=== PATIENT | male | born 1960 | race Two or more races ===

== ENCOUNTER 2017-03-01 09:15 | Inpatient (IN) | payer OTHER ==
[2017-03-01 11:06] VITALS: BMI 22.6
--- NOTE | 2017-03-01 13:58 | HP ---
COWS - Scale Resting Pulse: 0= [place] 80 or Below Sweatin= Chills/Flushing Restless Observation: 3= Extraneous Movement Pupil Size: 2= Moderately Dilated Bone or Joint Aches: 4=Acute Joint/Muscle Pain Runny Nose/ Eye Tearin= Nasal Congestion GI Upset > 30mins: 1= Stomach Cramp Tremor Observation: 2= Slight Tremor Visible Yawning Observation: 2= >3x During Session Anxiety or Irritability: 1=Feels Anxious/Irritable Goose Flesh Skin: 0=Smooth Skin COWS Score: 17 CIWA Score - CIWA Score Nausea/Vomitin-No Nausea/No Vomiting Muscle Tremors: 3 Anxiety: 4-Mod. Anxious/Guarded Agitation: 3 Paroxysmal Sweats: 1-Minimal Palms Moist Orientation: 0-Oriented Tacttile Disturbances: 3-Moderate Itch/Numb/Burn Auditory Disturbances: 0-None Visual Disturbances: 0-None Headache: 0-None Present CIWA-Ar Total Score: 14 Admission ROS BHS - HPI Chief Complaint: DETOX FOR ALCOHOL AND HEROIN DEPENDENC Allergies/Adverse Reactions: Allergies Allergy/AdvReac Type Severity Reaction Status Date / Time No Known Allergies Allergy Verified 03/01/17 13:06 History of Present Illness: 57 Y/O H/M WITH A HX OF HEROIN AND ALCOHOL DEPENDENCE SEEKING DETOX [place] Exam Limitations: No Limitations - Ebola screening Have you traveled outside of the country in the last 21 days: No Have you had contact with anyone from an Ebola affected area: No Have you been sick,other than usual withdrawal symptoms: No Do you have a fever: No - Review of Systems Constitutional: Chills, Loss of Appetite, Night Sweats, Changes in sleep EENT: reports: Blurred Vision (WEARS GLASSES), Tearing, Nose Congestion Respiratory: reports: No Symptoms reported Cardiac: reports: Lightheadedness GI: reports: Constipated, Diarrhea, Nausea, Poor Appetite, Poor Fluid Intake, Vomiting : reports: No Symptoms Reported Musculoskeletal: reports: Muscle Pain Integumentary: reports: No Symptoms Reported Neuro: reports: Headache, Tremors, Unsteady Gait, Dizziness Endocrine: reports: No Symptoms Reported Hematology: reports: No Symptoms Reported Psychiatric: reports: Orientated x3, Anxious Other Systems: Reviewed and Negative Patient History - Patient Medical History Hx Anemia: No Hx Asthma: No Hx Chronic Obstructive Pulmonary Disease (COPD): No Hx Cancer: No Hx Cardiac Disorders: No Hx Hypertension: Yes (on meds.) Hx Hypercholesterolemia: No Hx Pacemaker: No HX Cerebrovascular Accident: No Hx Seizures: No Hx Dementia: No Hx Diabetes: No Hx Gastrointestinal Disorders: No Hx Liver Disease: No Hx Genitourinary Disorders: No Hx Sexually Transmitted Disorders: No (DENIES) Hx Renal Disease (ESRD): No Hx Thyroid Disease: No Hx Human Immunodeficiency Virus (HIV): No (NEGATIVE HX) Hx Hepatitis C: No Hx Depression: No Hx Suicide Attempt: No (DENIES) Hx Bipolar Disorder: No Hx Schizophrenia: No - Patient Surgical History Past Surgical History: Yes Hx Neurologic Surgery: No Hx Cataract Extraction: No Hx Cardiac Surgery: No Hx Lung Surgery: No Hx Breast Surgery: No Hx Breast Biopsy: No Hx Abdominal Surgery: No Hx Appendectomy: No Hx Cholecystectomy: No Hx Genitourinary Surgery: No Hx Orthopedic Surgery: Yes (left Achilles heel in 2003) Anesthesia Reaction: No - PPD History Previous Implant?: Yes (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 History Hx Alcohol Use: Yes (VODKA/BEER) Hx Substance Use: Yes (HEROIN) Substance Use Type: Alcohol, Heroin Hx Substance Use Treatment: Yes (LAST TX AT [facility]) - Substances Abused Heroin Route: Inhalation Frequency: Daily Amount used: 8 bags Age of first use: 17 Date of Last Use: 03/01/17 Alcohol Route: Oral Frequency: Daily Amount used: 2 pk beers/ 1 pints vodka Age of first use: 18 Date of Last Use: 02/28/17 Family Disease History - Family Disease History Family Disease History: Diabetes: Father (HTN,ALCOHOLIC), Mother (HTN), Brother (HTN), Heart Disease: Father, Mother, Brother, Sister (HTN), Other: Father Admission Physical Exam BHS - Vital Signs Vital Signs: Vital Signs - 24 hr 03/01/17 11:00 Temperature 95.5 F L Pulse Rate 68 Respiratory 18 Rate Blood Pressure 151/89 - Physical General Appearance: Yes: Moderate Distress, Anxious HEENTM: Yes: EOMI, NIGHAT, Pharynx Normal, Nasal Congestion, Rhinorrhea Respiratory: Yes: Chest Non-Tender, Lungs Clear, Normal Breath Sounds, No Respiratory Distress Neck: Yes: Supple, Trachea in good position Breast: Yes: Breast Exam Deferred Cardiology: Yes: Regular Rhythm, Regular Rate, S1, S2 Abdominal: Yes: Normal Bowel Sounds, Non Tender, Soft Genitourinary: Yes: Other (N/C) Back: Yes: Within Normal Limits Musculoskeletal: Yes: full range of Motion, Gait Steady Extremities: Yes: Normal Range of Motion, Non-Tender Integumentary: Yes: Dry, Warm Lymphatic: Yes: Within Normal Limits - Diagnostic (1) Hypertension Current Visit: Yes Status: Chronic Qualifiers: Hypertension type: essential hypertension Qualified Code(s): I10 - Essential (primary) hypertension (2) Opioid dependence with withdrawal Current Visit: Yes Status: Acute (3) Alcohol dependence with uncomplicated withdrawal Current Visit: Yes Status: Acute Cleared for Admission [facility] - Detox or Rehab [facility] Level of Care: Medically Managed Detox Regimen/Protocol: Methadone/Librium [facility] Breath Alcohol Content Breath Alcohol Content: 0 Urine Drug Screen - Results Drug Screen Negative: No Urine Drug Screen Results: OPI-Opiates, BZO-Benzodiazepines
[2017-03-01] MEDS ORDERED: ACETAMINOPHEN 325 MG TABLET (FP) PO PRN (14:03)
[2017-03-01] MEDS ORDERED: IBUPROFEN 400 MG TABLET (FP) PO PRN (14:03)
[2017-03-01] MEDS ORDERED: chlordiazePOXIDE HCL 25 MG CAPSULE PO PRN (14:03)
[2017-03-01] MEDS ORDERED: MAGNESIUM CITRATE 300 ML BOTTLE PO PRN (14:03)
[2017-03-01] MEDS ORDERED: guaiFENesin/D-METHORPHAN HB 10 ML UNIT-DOSE CUPS PO PRN (14:03)
[2017-03-01] MEDS ORDERED: MAG HYDROX/AL HYDROX/SIMETH 30 ML UNIT-DOSE CUP PO PRN (14:03)
[2017-03-01] MEDS ORDERED: MAGNESIUM HYDROX 2400MG/30ML ORAL SUSPENSION 30 ML CUP PO PRN (14:03)
[2017-03-01] MEDS ORDERED: MENTHOL/PHENOL 1 EACH UD MM PRN (14:03)
[2017-03-01] MEDS ORDERED: LOPERAMIDE HCL 2 MG CAPSULE PO PRN (14:03)
[2017-03-01] MEDS ORDERED: P-EPHED 60MG/TRIPROLIDI 2.5MG TABLET PO PRN (14:03)
[2017-03-01] MEDS ORDERED: chlordiazePOXIDE HCL 25 MG CAPSULE PO ONE (14:14)
[2017-03-01] MEDS ORDERED: METHADONE HCL 10 MG TABLET (FOR DETOX USE ONLY) PO ONE ×2 (14:15→23:00)
[2017-03-01] MEDS ORDERED: PATIENT'S OWN MEDICATION (NON-FORMULARY) (Lisinopril/Hydrochlorothiazide [Lisinopril-Hctz PO SCH (15:00)
[2017-03-01] MEDS: HYDROCHLOROTHIAZIDE 12.5 MG CAPSULE (FP) PO SCH (16:57)
[2017-03-01] MEDS: LISINOPRIL 20 MG TABLET (FP) PO SCH (16:57)
[2017-03-01] MEDS: chlordiazePOXIDE HCL 25 MG CAPSULE PO SCH ×2 (17:32→22:09)
[2017-03-01 21:56] LABS: URINE APPEARANCE CLEAR; URINE BILIRUBIN NEGATIVE (NEGATIVE); URINE BLOOD NEGATIVE (NEGATIVE); URINE COLOR LTYELLOW; URINE GLUCOSE (UA) NEGATIVE (NEGATIVE); URINE KETONE NEGATIVE (NEGATIVE); URINE LEUK ESTERASE NEGATIVE (NEGATIVE); URINE NITRITE NEGATIVE (NEGATIVE); URINE PROTEIN NEGATIVE (NEGATIVE); URINE UROBILINOGEN NEGATIVE mg/dL (0.2-1.0)
[2017-03-01] MEDS: THIAMINE HCL 100 MG TABLET (FP) PO SCH (22:08)
[2017-03-02] MEDS: chlordiazePOXIDE HCL 25 MG CAPSULE PO SCH ×4 (06:18→22:34)
[2017-03-02] MEDS ORDERED: METHADONE HCL 10 MG TABLET (FOR DETOX USE ONLY) PO SCH (10:00)
[2017-03-02 10:39] LABS: MCHC 32.2 g/dl (32.0-35.9); MEAN CELL VOLUME 90.1 fl (80-96); PLATELET COUNT 228 K/MM3 (134-434); RDW 14.9 % (11.9-15.9); WHITE BLOOD COUNT 6.3 K/mm3 (4.0-10.0)
[2017-03-02 10:45] LABS: ALBUMIN 3.4 g/dl (3.4-5.0); ANION GAP 2 (8-16); CALCIUM 9.6 mg/dL (8.5-10.1); CO2 34 mmol/L (21-32); GLUCOSE,RANDOM 98 mg/dL (74-106)
[2017-03-02 10:49] LABS: ALK PHOS 73 U/L (45-117); BILIRUBIN,TOTAL 0.3 mg/dL (0.2-1.0); CREATININE 1.6 mg/dL (0.7-1.3); SGOT/AST 14 U/L (15-37); SGPT/ALT 14 U/L (12-78); TOT PROT 7.2 g/dl (6.4-8.2)
[2017-03-02] MEDS: PRENATAL VITAMINS W/ FOLIC ACID TABLET (FP) PO SCH (10:49)
[2017-03-02] MEDS: HYDROCHLOROTHIAZIDE 12.5 MG CAPSULE (FP) PO SCH (10:49)
[2017-03-02] MEDS: LISINOPRIL 20 MG TABLET (FP) PO SCH (10:49)
--- NOTE | 2017-03-02 14:23 | PN ---
[facility] CIWA - CIWA Score Nausea/Vomitin-No Nausea/No Vomiting Muscle Tremors: 3 Anxiety: 4-Mod. Anxious/Guarded Agitation: 3 Paroxysmal Sweats: 3 Orientation: 0-Oriented Tacttile Disturbances: 0-None Auditory Disturbances: 0-None Visual Disturbances: 0-None Headache: 0-None Present CIWA-Ar Total Score: 13 BHS COWS - Scale Resting Pulse: 0= [place] 80 or Below Sweatin=Flushed/Facial Moisture Restless Observation: 1= Difficult to Sit Still Pupil Size: 0= Normal to Room Light Bone or Joint Aches: 1= Mild Discomfort Runny Nose/ Eye Tearin= None GI Upset > 30mins: 2= Nausea/Diarrhea Tremor Observation of Outstretched Hands: 2= Slight Tremor Visible Yawning Observation: 1= 1-2x During Session Anxiety or Irritability: 2=Irritable/Anxious Goose Flesh Skin: 0=Smooth Skin COWS Score: 11 S Progress Note (SOAP) Subjective: Sweating,interrupted sleep,anxiety,tremors,restless,body aches. Objective: 03/02/17 14:22 Vital Signs - 8 hr 03/02/17 03/02/17 09:47 14:12 Temperature 97.5 F L 96.8 F L Pulse Rate 64 65 Respiratory 18 18 Rate Blood Pressure 139/84 139/86 Laboratory Tests 03/01/17 03/02/17 03/02/17 21:00 06:15 06:15 WBC RBC Hgb Hct MCV MCH MCHC RDW Plt Count MPV Sodium 139 Potassium 4.9 Chloride 103 Carbon Dioxide 34 H Anion Gap 2 L BUN 14 D Creatinine 1.6 H D Creat Clearance w eGFR 44.78 Random Glucose 98 Calcium 9.6 Total Bilirubin 0.3 D AST 14 L ALT 14 D Alkaline Phosphatase 73 D Total Protein 7.2 Albumin 3.4 Urine Color Ltyellow Urine Appearance Clear Urine pH 6.0 Ur Specific [place] 1.020 Urine Protein Negative Urine Glucose (UA) Negative Urine Ketones Negative Urine Blood Negative Urine Nitrite Negative Urine Bilirubin Negative Urine Urobilinogen Negative Ur Leukocyte Esterase Negative RPR Titer Nonreactive 03/02/17 08:45 WBC 6.3 RBC 4.23 Hgb 12.3 Hct 38.1 MCV 90.1 MCH 29.0 MCHC 32.2 RDW 14.9 Plt Count 228 D MPV 11.0 Sodium Potassium Chloride Carbon Dioxide Anion Gap BUN Creatinine Creat Clearance w eGFR Random Glucose Calcium Total Bilirubin AST ALT Alkaline Phosphatase Total Protein Albumin Urine Color Urine Appearance Urine pH Ur Specific [place] Urine Protein Urine Glucose (UA) Urine Ketones Urine Blood Urine Nitrite Urine Bilirubin Urine Urobilinogen Ur Leukocyte Esterase RPR Titer labs noted Assessment: 03/02/17 14:22 Withdrawal sx. Plan: Continue detox
[2017-03-02] MEDS: diphenhydrAMINE HCL 50 MG CAPSULE PO PRN (22:34)
[2017-03-02] MEDS: THIAMINE HCL 100 MG TABLET (FP) PO SCH (22:34)
[2017-03-03] MEDS: chlordiazePOXIDE HCL 25 MG CAPSULE PO SCH ×2 (06:12→10:54)
[2017-03-03] MEDS: HYDROCHLOROTHIAZIDE 12.5 MG CAPSULE (FP) PO SCH (10:54)
[2017-03-03] MEDS: METHADONE HCL 5 MG TABLET (FOR DETOX USE ONLY) PO SCH (10:54)
[2017-03-03] MEDS: PRENATAL VITAMINS W/ FOLIC ACID TABLET (FP) PO SCH (10:54)
[2017-03-03] MEDS: LISINOPRIL 20 MG TABLET (FP) PO SCH (10:54)
--- NOTE | 2017-03-03 15:01 | PN ---
[facility] CIWA - CIWA Score Nausea/Vomitin-No Nausea/No Vomiting Muscle Tremors: 3 Anxiety: 3 Agitation: 2 Paroxysmal Sweats: 3 Orientation: 1-Uncertain about Date Tacttile Disturbances: 1-Very Mild Itch/Numbness Auditory Disturbances: 0-None Visual Disturbances: 0-None Headache: 0-None Present CIWA-Ar Total Score: 13 BHS COWS - Scale Resting Pulse: 0= [place] 80 or Below Sweatin=Flushed/Facial Moisture Restless Observation: 1= Difficult to Sit Still Pupil Size: 0= Normal to Room Light Bone or Joint Aches: 1= Mild Discomfort Runny Nose/ Eye Tearin= Runny Nose/Eyes GI Upset > 30mins: 2= Nausea/Diarrhea Tremor Observation of Outstretched Hands: 2= Slight Tremor Visible Yawning Observation: 1= 1-2x During Session Anxiety or Irritability: 2=Irritable/Anxious Goose Flesh Skin: 0=Smooth Skin COWS Score: 13 [facility] Progress Note (SOAP) Subjective: Anxiety,body aches,sweating,interrupted sleep,restless. Objective: 03/03/17 14:56 Vital Signs - 8 hr 03/03/17 03/03/17 10:00 13:47 Temperature 97.9 F 97.7 F Pulse Rate 66 68 Respiratory 18 18 Rate Blood Pressure 108/59 129/77 Laboratory Last Values WBC 6.3 K/mm3 (4.0-10.0) 03/02/17 08:45 RBC 4.23 M/mm3 (4.00-5.60) 03/02/17 08:45 Hgb 12.3 GM/dL (11.7-16.9) 03/02/17 08:45 Hct 38.1 % (35.4-49) 03/02/17 08:45 MCV 90.1 fl (80-96) 03/02/17 08:45 MCH 29.0 pg (25.7-33.7) 03/02/17 08:45 MCHC 32.2 g/dl (32.0-35.9) 03/02/17 08:45 RDW 14.9 % (11.9-15.9) 03/02/17 08:45 Plt Count 228 K/MM3 (134-434) D 03/02/17 08:45 MPV 11.0 fl (7.5-11.1) 03/02/17 08:45 Sodium 139 mmol/L (136-145) 03/02/17 06:15 Potassium 4.9 mmol/L (3.5-5.1) 03/02/17 06:15 Chloride 103 mmol/L (98-107) 03/02/17 06:15 Carbon Dioxide 34 mmol/L (21-32) H 03/02/17 06:15 Anion Gap 2 (8-16) L 03/02/17 06:15 BUN 14 mg/dL (7-18) D 03/02/17 06:15 Creatinine 1.6 mg/dL (0.7-1.3) H D 03/02/17 06:15 Creat Clearance w eGFR 44.78 (>60) 03/02/17 06:15 Random Glucose 98 mg/dL (74-106) 03/02/17 06:15 Calcium 9.6 mg/dL (8.5-10.1) 03/02/17 06:15 Total Bilirubin 0.3 mg/dL (0.2-1.0) D 03/02/17 06:15 AST 14 U/L (15-37) L 03/02/17 06:15 ALT 14 U/L (12-78) D 03/02/17 06:15 Alkaline Phosphatase 73 U/L (45-117) D 03/02/17 06:15 Total Protein 7.2 g/dl (6.4-8.2) 03/02/17 06:15 Albumin 3.4 g/dl (3.4-5.0) 03/02/17 06:15 Urine Color Ltyellow 03/01/17 21:00 Urine Appearance Clear 03/01/17 21:00 Urine pH 6.0 (5.0-8.0) 03/01/17 21:00 Ur Specific [place] 1.020 (1.005-1.025) 03/01/17 21:00 Urine Protein Negative (NEGATIVE) 03/01/17 21:00 Urine Glucose (UA) Negative (NEGATIVE) 03/01/17 21:00 Urine Ketones Negative (NEGATIVE) 03/01/17 21:00 Urine Blood Negative (NEGATIVE) 03/01/17 21:00 Urine Nitrite Negative (NEGATIVE) 03/01/17 21:00 Urine Bilirubin Negative (NEGATIVE) 03/01/17 21:00 Urine Urobilinogen Negative mg/dL (0.2-1.0) 03/01/17 21:00 Ur Leukocyte Esterase Negative (NEGATIVE) 03/01/17 21:00 RPR Titer Nonreactive (NONREACTIVE) 03/02/17 06:15 labs noted Assessment: 03/03/17 15:01 Withdrawal sx. Plan: Continue detox
[2017-03-03] MEDS: chlordiazePOXIDE 5 MG CAPSULE PO SCH ×2 (18:02→22:25)
[2017-03-03] MEDS: THIAMINE HCL 100 MG TABLET (FP) PO SCH (22:25)
[2017-03-04] MEDS: chlordiazePOXIDE 5 MG CAPSULE PO SCH ×2 (05:38→10:13)
--- NOTE | 2017-03-04 10:00 | EKG ---
Test Reason : Blood Pressure : / mmHG Vent. Rate : 063 BPM Atrial Rate : 063 BPM P-R Int : 154 ms QRS Dur : 092 ms QT Int : 412 ms P-R-T Axes : 063 073 060 degrees QTc Int : 421 ms NORMAL SINUS RHYTHM NORMAL ECG NO PREVIOUS ECGS AVAILABLE Confirmed by VALERIE MENA MD ([id number]) on 03/04/2017 9:59:43 AM Referred By: Confirmed By:VALERIE MENA MD
[2017-03-04] MEDS: METHADONE HCL 5 MG TABLET (FOR DETOX USE ONLY) PO SCH (10:12)
[2017-03-04] MEDS: HYDROCHLOROTHIAZIDE 12.5 MG CAPSULE (FP) PO SCH (10:13)
[2017-03-04] MEDS: LISINOPRIL 20 MG TABLET (FP) PO SCH (10:13)
[2017-03-04] MEDS: PRENATAL VITAMINS W/ FOLIC ACID TABLET (FP) PO SCH (10:13)
--- NOTE | 2017-03-04 10:26 | PN ---
BHS Progress Note (SOAP) Subjective: ALERT,IRRITABLE,ANXIOUS,INTERRUPTED SLEEP,TREMOR,PAIN IN THE BODY AND BACK Objective: 03/04/17 10:25 03/04/17 10:25 Vital Signs Temperature 97.7 F 03/04/17 09:53 Pulse Rate 72 03/04/17 09:53 Respiratory Rate 18 03/04/17 09:53 Blood Pressure 105/72 03/04/17 09:53 O2 Sat by Pulse Oximetry (%) EKG NSR Laboratory Last Values WBC 6.3 K/mm3 (4.0-10.0) 03/02/17 08:45 RBC 4.23 M/mm3 (4.00-5.60) 03/02/17 08:45 Hgb 12.3 GM/dL (11.7-16.9) 03/02/17 08:45 Hct 38.1 % (35.4-49) 03/02/17 08:45 MCV 90.1 fl (80-96) 03/02/17 08:45 MCH 29.0 pg (25.7-33.7) 03/02/17 08:45 MCHC 32.2 g/dl (32.0-35.9) 03/02/17 08:45 RDW 14.9 % (11.9-15.9) 03/02/17 08:45 Plt Count 228 K/MM3 (134-434) D 03/02/17 08:45 MPV 11.0 fl (7.5-11.1) 03/02/17 08:45 Sodium 139 mmol/L (136-145) 03/02/17 06:15 Potassium 4.9 mmol/L (3.5-5.1) 03/02/17 06:15 Chloride 103 mmol/L (98-107) 03/02/17 06:15 Carbon Dioxide 34 mmol/L (21-32) H 03/02/17 06:15 Anion Gap 2 (8-16) L 03/02/17 06:15 BUN 14 mg/dL (7-18) D 03/02/17 06:15 Creatinine 1.6 mg/dL (0.7-1.3) H D 03/02/17 06:15 Creat Clearance w eGFR 44.78 (>60) 03/02/17 06:15 Random Glucose 98 mg/dL (74-106) 03/02/17 06:15 Calcium 9.6 mg/dL (8.5-10.1) 03/02/17 06:15 Total Bilirubin 0.3 mg/dL (0.2-1.0) D 03/02/17 06:15 AST 14 U/L (15-37) L 03/02/17 06:15 ALT 14 U/L (12-78) D 03/02/17 06:15 Alkaline Phosphatase 73 U/L (45-117) D 03/02/17 06:15 Total Protein 7.2 g/dl (6.4-8.2) 03/02/17 06:15 Albumin 3.4 g/dl (3.4-5.0) 03/02/17 06:15 Urine Color Ltyellow 03/01/17 21:00 Urine Appearance Clear 03/01/17 21:00 Urine pH 6.0 (5.0-8.0) 03/01/17 21:00 Ur Specific [place] 1.020 (1.005-1.025) 03/01/17 21:00 Urine Protein Negative (NEGATIVE) 03/01/17 21:00 Urine Glucose (UA) Negative (NEGATIVE) 03/01/17 21:00 Urine Ketones Negative (NEGATIVE) 03/01/17 21:00 Urine Blood Negative (NEGATIVE) 03/01/17 21:00 Urine Nitrite Negative (NEGATIVE) 03/01/17 21:00 Urine Bilirubin Negative (NEGATIVE) 03/01/17 21:00 Urine Urobilinogen Negative mg/dL (0.2-1.0) 03/01/17 21:00 Ur Leukocyte Esterase Negative (NEGATIVE) 03/01/17 21:00 RPR Titer Nonreactive (NONREACTIVE) 03/02/17 06:15 Assessment: 03/04/17 10:26 WITHDRAWAL SYMPTOM Plan: CONTINUE DETOX
[2017-03-04] MEDS: chlordiazePOXIDE HCL 10 MG CAPSULE PO SCH ×2 (17:55→22:33)
[2017-03-04] MEDS: THIAMINE HCL 100 MG TABLET (FP) PO SCH (22:33)
[2017-03-04] MEDS: diphenhydrAMINE HCL 50 MG CAPSULE PO PRN (22:33)
[2017-03-05] MEDS: chlordiazePOXIDE HCL 10 MG CAPSULE PO SCH ×2 (05:12→11:06)
[2017-03-05] MEDS ORDERED: METHADONE HCL 10 MG TABLET (FOR DETOX USE ONLY) PO SCH (10:00)
[2017-03-05] MEDS: PRENATAL VITAMINS W/ FOLIC ACID TABLET (FP) PO SCH (11:06)
[2017-03-05] MEDS: HYDROCHLOROTHIAZIDE 12.5 MG CAPSULE (FP) PO SCH (11:07)
[2017-03-05] MEDS: LISINOPRIL 20 MG TABLET (FP) PO SCH (11:07)
--- NOTE | 2017-03-05 11:12 | PN ---
S Progress Note (SOAP) Subjective: ALERT,IRRITABLE,ANXIOUS,INTERRUPTED SLEEP Objective: 03/05/17 11:11 Vital Signs Temperature 97.7 F 03/05/17 06:09 Pulse Rate 70 03/05/17 06:09 Respiratory Rate 18 03/05/17 06:09 Blood Pressure 140/78 03/05/17 06:09 O2 Sat by Pulse Oximetry (%) Assessment: 03/05/17 11:11 WITHDRAWAL SYMPTOM Plan: CONTINUE DETOX,DISCHARGE IN AM
[2017-03-05] MEDS: diphenhydrAMINE HCL 50 MG CAPSULE PO PRN (22:05)
[2017-03-05] MEDS: THIAMINE HCL 100 MG TABLET (FP) PO SCH (22:05)
[2017-03-06] MEDS ORDERED: METHADONE HCL 5 MG TABLET (FOR DETOX USE ONLY) PO SCH (06:00)
--- NOTE | 2017-03-06 08:35 | DS ---
[facility] Detox Discharge Summary Admission Date: 03/01/17 Discharge Date: 03/06/17 - History Present History: Alcohol Dependence, Opioid Dependence Additional Comments: follow up with after care program as arrangement Pertinent Past History: hypertension - Physical Exam Results Vital Signs: Vital Signs Temperature 98.1 F 03/06/17 06:25 Pulse Rate 68 03/06/17 06:25 Respiratory Rate 18 03/06/17 06:25 Blood Pressure 121/60 03/06/17 06:25 O2 Sat by Pulse Oximetry (%) Pertinent Admission Physical Exam Findings: withdrawal symptom - Treatment Hospital Course: Detox Protocol Followed, Detoxed Safely, Responded well, Discharged Condition Good Patient has Accepted a Rehab Referral to: declined - Medication Discharge Medications: Ambulatory Orders Lisinopril/Hydrochlorothiazide [Lisinopril-Hctz 20-12.5 mg Tab] 1 each PO DAILY 08/21/14 - Diagnosis (1) Alcohol dependence with uncomplicated withdrawal Current Visit: Yes Status: Acute (2) Opioid dependence with withdrawal Current Visit: Yes Status: Acute (3) Hypertension Current Visit: Yes Status: Chronic Qualifiers: Hypertension type: essential hypertension Qualified Code(s): I10 - Essential (primary) hypertension - AMA Did Patient Leave Against Medical Advice: No
[2017-03-06 10:02] VITALS: BP 136/80; PULSE 72; TEMP 96.1
[2017-03-06] MEDS: HYDROCHLOROTHIAZIDE 12.5 MG CAPSULE (FP) PO SCH (10:25)
[2017-03-06] MEDS: LISINOPRIL 20 MG TABLET (FP) PO SCH (10:25)
[2017-03-06] MEDS: PRENATAL VITAMINS W/ FOLIC ACID TABLET (FP) PO SCH (10:25)
== END 2017-03-06 11:41 | disposition home or self-care (01) | DRG 773 ==
LOC: YASAS 09:15 → Y6N 13:06
PROVIDERS: ADMIT Internal Medicine; ATTEND Surgery
PROC: HZ2ZZZZ Detoxification Services for Substance Abuse Treatment (ICD-10-PCS; principal; 2017-03-01)
DX: F11.23 Opioid dependence with withdrawal (principal); F10.230 Alcohol dependence with withdrawal, uncomplicated; I10 Essential (primary) hypertension
CPT/HCPCS: 36415; 71020-TC; 80053; 81003; 85027; 86593; 93005; 93010

== ENCOUNTER 2022-02-01 11:18 | Inpatient (IN) | payer OTHER ==
[2022-02-01 12:59] VITALS: BMI 23.0
[2022-02-01] MEDS ORDERED: MAG HYDROX/AL HYDROX/SIMETH 30 ML UNIT-DOSE CUP PO PRN (13:21)
[2022-02-01] MEDS ORDERED: NALOXONE HCL (KLOXXADO) 8 MG SPRAY NS PRN (13:21)
[2022-02-01] MEDS ORDERED: IBUPROFEN 400 MG TABLET (FP) PO PRN (13:21)
[2022-02-01] MEDS ORDERED: ACETAMINOPHEN 325 MG TABLET (FP) PO PRN ×2 (13:21)
[2022-02-01] MEDS ORDERED: DICYCLOMINE HCL 10 MG CAPSULE PO PRN (13:21)
[2022-02-01] MEDS ORDERED: LOPERAMIDE HCL 2 MG CAPSULE PO PRN (13:21)
[2022-02-01] MEDS ORDERED: MAGNESIUM HYDROX 2400MG/30ML ORAL SUSPENSION 30 ML CUP PO PRN (13:21)
[2022-02-01] MEDS ORDERED: BENZOCAINE/MENTHOL (CHLORASEPTIC ) LOZENGE MM PRN (13:21)
[2022-02-01] MEDS ORDERED: cloNIDine HCL 0.1 MG TABLET PO PRN (13:21)
[2022-02-01] MEDS ORDERED: MAGNESIUM CITRATE 300 ML BOTTLE PO PRN (13:21)
[2022-02-01] MEDS ORDERED: ONDANSETRON *ODT* 4 MG TABLET SL PRN (13:21)
[2022-02-01] MEDS ORDERED: methaDONE HCL 10 MG TABLET (FOR DETOX USE ONLY) PO ONE (13:21)
[2022-02-01] MEDS ORDERED: BISMUTH SUBSALICYLATE 262 MG/15 ML BTL PO PRN (13:21)
[2022-02-01] MEDS: hydrOXYzine PAMOATE 25 MG CAPSULE (FP) PO SCH ×3 (14:56→22:35)
[2022-02-01] MEDS: diazePAM 5 MG TABLET PO PRN (14:56)
[2022-02-01] MEDS: PRENATAL VITAMINS W/ FOLIC ACID TABLET (FP) PO SCH (14:58)
[2022-02-01] MEDS: IBUPROFEN 600 MG TABLET (FP) PO PRN (14:58)
[2022-02-01] MEDS ORDERED: amLODIPine BESYLATE 10 MG TABLET (FP) PO SCH (15:45)
[2022-02-01] MEDS ORDERED: HYDROCHLOROTHIAZIDE 12.5 MG CAPSULE (FP) PO SCH (15:45)
[2022-02-01 17:11] LABS: HEMATOCRIT 41.5 % (35.4-49); HEMOGLOBIN 13.6 GM/dL (11.7-16.9); MCH 29.3 pg (25.7-33.7); MCHC 32.6 g/dl (32.0-35.9); MEAN CELL VOLUME 89.7 fl (80-96); RBC 4.63 M/mm3 (4.00-5.60); RDW 14.5 % (11.9-15.9); WHITE BLOOD COUNT 5.7 K/mm3 (4.0-10.0)
[2022-02-01 17:14] LABS: CALCIUM 9.1 mg/dL (8.5-10.1)
[2022-02-01 17:15] LABS: ALBUMIN 3.8 g/dl (3.4-5.0); BLOOD UREA NITROGEN 25.5 mg/dL (7-18)
[2022-02-01 17:18] LABS: CREATININE 1.7 mg/dL (0.55-1.3)
[2022-02-01 17:19] LABS: BILIRUBIN,TOTAL 1.1 mg/dL (0.2-1); TOT PROT 7.9 g/dl (6.4-8.2)
[2022-02-01 17:52] LABS: MEAN PLT VOLUME 11.4 fl (7.5-11.1); PLATELET COUNT 149 10^3/uL (134-434)
[2022-02-01] MEDS: diazePAM 5 MG TABLET PO SCH ×2 (17:55→22:36)
[2022-02-01] MEDS: THIAMINE HCL 100 MG TABLET (FP) PO SCH (22:35)
[2022-02-01] MEDS: MELATONIN 5 MG TABLETS PO SCH (22:36)
[2022-02-02] MEDS: IBUPROFEN 600 MG TABLET (FP) PO PRN (02:06)
[2022-02-02] MEDS: diazePAM 5 MG TABLET PO SCH ×4 (05:27→22:18)
[2022-02-02] MEDS: hydrOXYzine PAMOATE 25 MG CAPSULE (FP) PO SCH ×5 (05:27→22:18)
[2022-02-02] MEDS ORDERED: methaDONE HCL 10 MG TABLET (FOR DETOX USE ONLY) ONE (09:29)
[2022-02-02] MEDS ORDERED: PATIENT'S OWN MEDICATION (NON-FORMULARY) (Lisinopril/Hydrochlorothiazide [Lisinopril-Hctz PO SCH (10:00)
[2022-02-02] MEDS: HYDROCHLOROTHIAZIDE 12.5 MG CAPSULE (FP) PO SCH (10:17)
[2022-02-02] MEDS: amLODIPine BESYLATE 10 MG TABLET (FP) PO SCH (10:17)
[2022-02-02] MEDS: METHOCARBAMOL 500 MG TABLET PO PRN (10:18)
[2022-02-02] MEDS: PRENATAL VITAMINS W/ FOLIC ACID TABLET (FP) PO SCH (10:18)
[2022-02-02] MEDS: LISINOPRIL 20 MG TABLET PO SCH (10:20)
[2022-02-02] MEDS: THIAMINE HCL 100 MG TABLET (FP) PO SCH (22:18)
[2022-02-02] MEDS: MELATONIN 5 MG TABLETS PO SCH (22:18)
[2022-02-03] MEDS: hydrOXYzine PAMOATE 25 MG CAPSULE (FP) PO SCH ×5 (05:27→22:48)
[2022-02-03] MEDS: diazePAM 5 MG TABLET PO SCH ×3 (05:27→22:48)
[2022-02-03] MEDS ORDERED: methaDONE HCL 10 MG TABLET (FOR DETOX USE ONLY) PO ONE (10:00)
[2022-02-03] MEDS: HYDROCHLOROTHIAZIDE 12.5 MG CAPSULE (FP) PO SCH (10:14)
[2022-02-03] MEDS: LISINOPRIL 20 MG TABLET PO SCH (10:14)
[2022-02-03] MEDS: amLODIPine BESYLATE 10 MG TABLET (FP) PO SCH (10:14)
[2022-02-03] MEDS: PRENATAL VITAMINS W/ FOLIC ACID TABLET (FP) PO SCH (10:14)
[2022-02-03] MEDS: diazePAM 5 MG TABLET PO PRN (18:09)
[2022-02-03] MEDS: MELATONIN 5 MG TABLETS PO SCH (22:48)
[2022-02-03] MEDS: THIAMINE HCL 100 MG TABLET (FP) PO SCH (22:48)
[2022-02-04] MEDS: diazePAM 5 MG TABLET PO SCH ×2 (05:35→17:47)
[2022-02-04] MEDS: hydrOXYzine PAMOATE 25 MG CAPSULE (FP) PO SCH ×5 (05:36→22:08)
[2022-02-04] MEDS ORDERED: methaDONE HCL 10 MG TABLET (FOR DETOX USE ONLY) ONE (09:16)
[2022-02-04 10:26] LABS: CREATININE 1.6 mg/dL (0.55-1.3)
[2022-02-04] MEDS: HYDROCHLOROTHIAZIDE 12.5 MG CAPSULE (FP) PO SCH (10:30)
[2022-02-04] MEDS: LISINOPRIL 20 MG TABLET PO SCH (10:30)
[2022-02-04] MEDS: PRENATAL VITAMINS W/ FOLIC ACID TABLET (FP) PO SCH (10:30)
[2022-02-04] MEDS: amLODIPine BESYLATE 10 MG TABLET (FP) PO SCH (10:31)
[2022-02-04] MEDS: diazePAM 5 MG TABLET PO PRN (10:34)
[2022-02-04 10:38] LABS: CALCIUM 9.2 mg/dL (8.5-10.1)
[2022-02-04 10:39] LABS: BLOOD UREA NITROGEN 26.4 mg/dL (7-18)
[2022-02-04] MEDS: IBUPROFEN 600 MG TABLET (FP) PO PRN (15:33)
[2022-02-04] MEDS: METHOCARBAMOL 500 MG TABLET PO PRN (15:33)
[2022-02-04] MEDS: MELATONIN 5 MG TABLETS PO SCH (22:08)
[2022-02-04] MEDS: THIAMINE HCL 100 MG TABLET (FP) PO SCH (22:08)
[2022-02-05] MEDS: hydrOXYzine PAMOATE 25 MG CAPSULE (FP) PO SCH ×5 (05:25→23:00)
[2022-02-05] MEDS ORDERED: diazePAM 5 MG TABLET PO ONE (06:00)
[2022-02-05] MEDS ORDERED: methaDONE HCL 10 MG TABLET (FOR DETOX USE ONLY) PO ONE (10:00)
[2022-02-05] MEDS: LISINOPRIL 20 MG TABLET PO SCH (10:10)
[2022-02-05] MEDS: PRENATAL VITAMINS W/ FOLIC ACID TABLET (FP) PO SCH (10:10)
[2022-02-05] MEDS: HYDROCHLOROTHIAZIDE 12.5 MG CAPSULE (FP) PO SCH (10:10)
[2022-02-05] MEDS: amLODIPine BESYLATE 10 MG TABLET (FP) PO SCH (10:10)
[2022-02-05] MEDS: METHOCARBAMOL 500 MG TABLET PO PRN (10:10)
[2022-02-05] MEDS: THIAMINE HCL 100 MG TABLET (FP) PO SCH (23:00)
[2022-02-05] MEDS: MELATONIN 5 MG TABLETS PO SCH (23:09)
[2022-02-06] MEDS: hydrOXYzine PAMOATE 25 MG CAPSULE (FP) PO SCH ×2 (05:24→10:08)
[2022-02-06] MEDS: LISINOPRIL 20 MG TABLET PO SCH (10:07)
[2022-02-06] MEDS: PRENATAL VITAMINS W/ FOLIC ACID TABLET (FP) PO SCH (10:07)
[2022-02-06] MEDS: amLODIPine BESYLATE 10 MG TABLET (FP) PO SCH (10:07)
[2022-02-06] MEDS: HYDROCHLOROTHIAZIDE 12.5 MG CAPSULE (FP) PO SCH (10:07)
[2022-02-06 12:50] VITALS: BP 152/89; PULSE 74; TEMP 98.3
== END 2022-02-06 13:25 | disposition other institution (70) | DRG 773 ==
LOC: YASAS 11:18 → Y6N 13:52
PROVIDERS: ADMIT Allergy & Immunology; ATTEND Surgery
PROC: HZ2ZZZZ Detoxification Services for Substance Abuse Treatment (ICD-10-PCS; principal; 2022-02-01)
DX: F11.23 Opioid dependence with withdrawal (principal); F10.230 Alcohol dependence with withdrawal, uncomplicated; I10 Essential (primary) hypertension; M17.0 Bilateral primary osteoarthritis of knee; M54.50 Low back pain, unspecified; G89.29 Other chronic pain; R79.89 Other specified abnormal findings of blood chemistry
CPT/HCPCS: 36415; 71046-TC-FY; 80048; 80053; 85027; 86780; 93005; 93010; C9803-CS; J0735; Q0162; U0003; U0005

== ENCOUNTER 2022-02-06 13:26 | Inpatient (IN) | payer OTHER ==
[~2022-02-06 13:26] MED LIST: ACETAMINOPHEN 325 MG TABLET (FP) PO PRN; IBUPROFEN 400 MG TABLET (FP) PO PRN; LOPERAMIDE HCL 2 MG CAPSULE PO PRN; MAG HYDROX/AL HYDROX/SIMETH 30 ML UNIT-DOSE CUP PO PRN; MAGNESIUM CITRATE 300 ML BOTTLE PO PRN; MAGNESIUM HYDROX 2400MG/30ML ORAL SUSPENSION 30 ML CUP PO PRN; NICOTINE 10 MG CARTRIDGE (INHALER) IH PRN; NICOTINE POLACRILEX 2 MG GUM BUC PRN; guaiFENesin 200 MG/10 ML 10 ML UNIT-DOSE CUPS PO PRN
[2022-02-06] MEDS: ACAMPROSATE CALCIUM 333 MG TABLET.DR PO SCH ×2 (14:47→21:17)
[2022-02-06] MEDS: hydrOXYzine PAMOATE 25 MG CAPSULE (FP) PO PRN ×2 (14:48→21:17)
[2022-02-06] MEDS: THIAMINE HCL 100 MG TABLET (FP) PO SCH (21:17)
[2022-02-06] MEDS: MELATONIN 5 MG TABLETS PO SCH (21:17)
[2022-02-07] MEDS: ACAMPROSATE CALCIUM 333 MG TABLET.DR PO SCH ×3 (06:14→21:43)
[2022-02-07] MEDS: PRENATAL VITAMINS W/ FOLIC ACID TABLET (FP) PO SCH (09:48)
[2022-02-07] MEDS: HYDROCHLOROTHIAZIDE 12.5 MG CAPSULE (FP) PO SCH (09:49)
[2022-02-07] MEDS: LISINOPRIL 20 MG TABLET PO SCH (09:49)
[2022-02-07] MEDS: amLODIPine BESYLATE 10 MG TABLET (FP) PO SCH (09:49)
[2022-02-07] MEDS: hydrOXYzine PAMOATE 25 MG CAPSULE (FP) PO PRN ×2 (14:35→21:43)
[2022-02-07] MEDS: MELATONIN 5 MG TABLETS PO SCH (21:43)
[2022-02-07] MEDS: THIAMINE HCL 100 MG TABLET (FP) PO SCH (21:43)
[2022-02-08] MEDS: ACAMPROSATE CALCIUM 333 MG TABLET.DR PO SCH ×3 (06:09→21:35)
[2022-02-08] MEDS: PRENATAL VITAMINS W/ FOLIC ACID TABLET (FP) PO SCH (10:05)
[2022-02-08] MEDS: LISINOPRIL 20 MG TABLET PO SCH (10:06)
[2022-02-08] MEDS: amLODIPine BESYLATE 10 MG TABLET (FP) PO SCH (10:06)
[2022-02-08] MEDS: HYDROCHLOROTHIAZIDE 12.5 MG CAPSULE (FP) PO SCH (10:06)
[2022-02-08] MEDS: THIAMINE HCL 100 MG TABLET (FP) PO SCH (21:35)
[2022-02-08] MEDS: MELATONIN 5 MG TABLETS PO SCH (21:35)
[2022-02-08] MEDS: hydrOXYzine PAMOATE 25 MG CAPSULE (FP) PO PRN (21:35)
[2022-02-09] MEDS: ACAMPROSATE CALCIUM 333 MG TABLET.DR PO SCH ×3 (06:17→21:30)
[2022-02-09] MEDS: PRENATAL VITAMINS W/ FOLIC ACID TABLET (FP) PO SCH (10:02)
[2022-02-09] MEDS: amLODIPine BESYLATE 10 MG TABLET (FP) PO SCH (10:02)
[2022-02-09] MEDS: LISINOPRIL 20 MG TABLET PO SCH (10:02)
[2022-02-09] MEDS: HYDROCHLOROTHIAZIDE 12.5 MG CAPSULE (FP) PO SCH (10:02)
[2022-02-09] MEDS: THIAMINE HCL 100 MG TABLET (FP) PO SCH (21:30)
[2022-02-09] MEDS: MELATONIN 5 MG TABLETS PO SCH (21:30)
[2022-02-09] MEDS: hydrOXYzine PAMOATE 25 MG CAPSULE (FP) PO PRN (21:30)
[2022-02-10] MEDS: ACAMPROSATE CALCIUM 333 MG TABLET.DR PO SCH ×3 (06:15→21:32)
[2022-02-10] MEDS: hydrOXYzine PAMOATE 25 MG CAPSULE (FP) PO PRN ×2 (09:51→21:32)
[2022-02-10] MEDS: PRENATAL VITAMINS W/ FOLIC ACID TABLET (FP) PO SCH (09:51)
[2022-02-10] MEDS: HYDROCHLOROTHIAZIDE 12.5 MG CAPSULE (FP) PO SCH (09:51)
[2022-02-10] MEDS: LISINOPRIL 20 MG TABLET PO SCH (09:51)
[2022-02-10] MEDS: amLODIPine BESYLATE 10 MG TABLET (FP) PO SCH (09:51)
[2022-02-10] MEDS: THIAMINE HCL 100 MG TABLET (FP) PO SCH (21:32)
[2022-02-10] MEDS: MELATONIN 5 MG TABLETS PO SCH (21:32)
[2022-02-11] MEDS: ACAMPROSATE CALCIUM 333 MG TABLET.DR PO SCH ×3 (06:13→21:27)
[2022-02-11] MEDS: PRENATAL VITAMINS W/ FOLIC ACID TABLET (FP) PO SCH (10:04)
[2022-02-11] MEDS: amLODIPine BESYLATE 10 MG TABLET (FP) PO SCH (11:00)
[2022-02-11] MEDS: LISINOPRIL 20 MG TABLET PO SCH (11:00)
[2022-02-11] MEDS: HYDROCHLOROTHIAZIDE 12.5 MG CAPSULE (FP) PO SCH (11:00)
[2022-02-11] MEDS: MELATONIN 5 MG TABLETS PO SCH (21:27)
[2022-02-11] MEDS: THIAMINE HCL 100 MG TABLET (FP) PO SCH (21:27)
[2022-02-11] MEDS: hydrOXYzine PAMOATE 25 MG CAPSULE (FP) PO PRN (21:28)
[2022-02-12] MEDS: ACAMPROSATE CALCIUM 333 MG TABLET.DR PO SCH ×3 (06:24→21:32)
[2022-02-12] MEDS: PRENATAL VITAMINS W/ FOLIC ACID TABLET (FP) PO SCH (10:02)
[2022-02-12] MEDS: amLODIPine BESYLATE 10 MG TABLET (FP) PO SCH (10:03)
[2022-02-12] MEDS: LISINOPRIL 20 MG TABLET PO SCH (10:03)
[2022-02-12] MEDS: HYDROCHLOROTHIAZIDE 12.5 MG CAPSULE (FP) PO SCH (10:03)
[2022-02-12] MEDS: THIAMINE HCL 100 MG TABLET (FP) PO SCH (21:32)
[2022-02-12] MEDS: MELATONIN 5 MG TABLETS PO SCH (21:32)
[2022-02-13] MEDS: ACAMPROSATE CALCIUM 333 MG TABLET.DR PO SCH ×3 (06:16→21:25)
[2022-02-13] MEDS: PRENATAL VITAMINS W/ FOLIC ACID TABLET (FP) PO SCH (09:57)
[2022-02-13] MEDS: amLODIPine BESYLATE 10 MG TABLET (FP) PO SCH (09:57)
[2022-02-13] MEDS: HYDROCHLOROTHIAZIDE 12.5 MG CAPSULE (FP) PO SCH (09:57)
[2022-02-13] MEDS: LISINOPRIL 20 MG TABLET PO SCH (09:57)
[2022-02-13] MEDS: THIAMINE HCL 100 MG TABLET (FP) PO SCH (21:25)
[2022-02-13] MEDS: MELATONIN 5 MG TABLETS PO SCH (21:25)
[2022-02-13] MEDS: hydrOXYzine PAMOATE 25 MG CAPSULE (FP) PO PRN (21:25)
[2022-02-14] MEDS: ACAMPROSATE CALCIUM 333 MG TABLET.DR PO SCH (06:26)
[2022-02-14 07:11] VITALS: TEMP 98.6
[2022-02-14] MEDS: PRENATAL VITAMINS W/ FOLIC ACID TABLET (FP) PO SCH (09:24)
[2022-02-14] MEDS: amLODIPine BESYLATE 10 MG TABLET (FP) PO SCH (09:25)
[2022-02-14] MEDS: HYDROCHLOROTHIAZIDE 12.5 MG CAPSULE (FP) PO SCH (09:25)
[2022-02-14] MEDS: LISINOPRIL 20 MG TABLET PO SCH (09:26)
[2022-02-14 11:22] VITALS: BP 97/64; PULSE 87
== END 2022-02-14 09:40 | disposition home or self-care (01) | DRG 772 ==
LOC: YASAS 13:26 → Y5N 13:28
PROVIDERS: ADMIT Allergy & Immunology; ATTEND Psychiatry & Neurology Pain Medicine
PROC: HZ42ZZZ Group Counseling for Substance Abuse Treatment, Cognitive-Behavioral (ICD-10-PCS; principal; 2022-02-06)
DX: F11.20 Opioid dependence, uncomplicated (principal); F10.20 Alcohol dependence, uncomplicated; I10 Essential (primary) hypertension; N28.9 Disorder of kidney and ureter, unspecified
CPT/HCPCS: 36415; 86803

== ENCOUNTER 2024-11-04 13:05 | Inpatient (IN) | payer OTHER ==
[2024-11-04] MEDS ORDERED: DICYCLOMINE HCL 10 MG CAPSULE PO PRN (13:42)
[2024-11-04] MEDS ORDERED: BENZONATATE 200 MG CAPSULE PO PRN (13:42)
[2024-11-04] MEDS ORDERED: NALOXONE (NARCAN) HCL 4 MG/0.1 ML SPRAY NS PRN (13:42)
[2024-11-04] MEDS ORDERED: ONDANSETRON *ODT* 4 MG TABLET SL PRN (13:42)
[2024-11-04] MEDS ORDERED: BISMUTH SUBSALICYLATE 524 MG/30 ML PO PRN (13:42)
[2024-11-04] MEDS ORDERED: LOPERAMIDE HCL 2 MG CAPSULE PO PRN (13:42)
[2024-11-04] MEDS ORDERED: MAGNESIUM HYDROX 2400MG/30ML ORAL SUSPENSION 30 ML CUP PO PRN (13:42)
[2024-11-04] MEDS ORDERED: chlordiazePOXIDE HCL 25 MG CAPSULE PO PRN (13:42)
[2024-11-04] MEDS ORDERED: IBUPROFEN 400 MG TABLET (FP) PO PRN (13:42)
[2024-11-04] MEDS ORDERED: MAG HYDROX/AL HYDROX/SIMETH 30 ML UNIT-DOSE CUP PO PRN (13:42)
[2024-11-04] MEDS ORDERED: POLYETHYLENE GLYCOL (HEALTHYLAX) 3350 17 GM PACKET PO PRN (13:42)
[2024-11-04] MEDS ORDERED: methaDONE HCL 10 MG TABLET (FOR DETOX USE ONLY) PO PRN (13:44)
[2024-11-04 13:57] VITALS: BMI 19.8
[2024-11-04] MEDS ORDERED: methaDONE HCL 10 MG TABLET (FOR DETOX USE ONLY) ONE (15:12)
[2024-11-04] MEDS: methaDONE HCL 10 MG TABLET (FOR DETOX USE ONLY) PO ONE (15:15)
[2024-11-04] MEDS: amLODIPine BESYLATE 10 MG TABLET (FP) PO SCH (15:16)
[2024-11-04] MEDS: HYDROCHLOROTHIAZIDE 25 MG TABLET (FP) PO SCH (15:16)
[2024-11-04] MEDS: ACETAMINOPHEN 325 MG TABLET (FP) PO PRN (17:09)
[2024-11-04] MEDS: chlordiazePOXIDE HCL 25 MG CAPSULE PO SCH (17:09)
[2024-11-04] MEDS: THIAMINE 100 MG TABLET PO SCH (22:12)
[2024-11-04] MEDS: MELATONIN 5 MG TABLETS PO SCH (22:12)
[2024-11-05] MEDS: PRENATAL VITAMINS W/ FOLIC ACID TABLET (FP) PO SCH (10:07)
[2024-11-05] MEDS: methaDONE HCL 10 MG TABLET (FOR DETOX USE ONLY) PO ONE (10:08)
[2024-11-05] MEDS: BENZOCAINE/MENTHOL (CHLORASEPTIC ) LOZENGE MM PRN (10:36)
[2024-11-05 11:13] LABS: HEMATOCRIT 40.8 % (40.1-51.0); HEMOGLOBIN 12.7 g/dL (13.7-17.5); MCHC 31.1 g/dl (32.3-36.5); MEAN CELL VOLUME 91.3 fl (79.0-92.2); PLATELET COUNT 124 x10^3/uL (163-337); RDW 13.8 % (12.2-16.4)
[2024-11-05 11:15] LABS: POTASSIUM 3.5 mmol/L (3.5-5.1)
[2024-11-05] MEDS: MINERAL OIL/PETROLAT/WATER TOPICAL CREAM 113 GM JAR TP SCH (11:15)
[2024-11-05 11:20] LABS: CALCIUM 9.2 mg/dL (8.5-10.1)
[2024-11-05 11:21] LABS: BLOOD UREA NITROGEN 29.7 mg/dL (7-18)
[2024-11-05 11:23] LABS: CREATININE 2.8 mg/dL (0.55-1.3)
[2024-11-05 11:24] LABS: ALBUMIN 3.7 g/dl (3.4-5.0); BILIRUBIN,TOTAL 0.5 mg/dL (0.2-1)
[2024-11-05 11:27] LABS: TOT PROT 7.5 g/dl (6.4-8.2)
[2024-11-05] MEDS: cloNIDine HCL 0.1 MG TABLET PO PRN (17:37)
[2024-11-05] MEDS: guaiFENesin 600 MG TABLET.ER (FP) PO PRN (18:04)
[2024-11-06] MEDS: chlordiazePOXIDE HCL 25 MG CAPSULE PO SCH (05:33)
[2024-11-06] MEDS: hydrOXYzine PAMOATE 25 MG CAPSULE (FP) PO PRN (05:54)
[2024-11-06] MEDS: IBUPROFEN 600 MG TABLET (FP) PO PRN (06:57)
[2024-11-06] MEDS: METHOCARBAMOL 500 MG TABLET PO PRN (06:58)
[2024-11-06] MEDS: predniSONE 20 MG TABLET (UD) PO SCH (14:49)
[2024-11-07] MEDS ORDERED: chlordiazePOXIDE HCL 10 MG CAPSULE PO PRN
[2024-11-07] MEDS: chlordiazePOXIDE HCL 10 MG CAPSULE PO SCH (05:18)
[2024-11-07] MEDS: methaDONE HCL 10 MG TABLET (FOR DETOX USE ONLY) PO ONE (10:04)
[2024-11-08] MEDS: chlordiazePOXIDE HCL 10 MG CAPSULE PO SCH (05:30)
[2024-11-09] MEDS: chlordiazePOXIDE HCL 10 MG CAPSULE PO ONE (05:50)
[2024-11-09] MEDS: methaDONE HCL 10 MG TABLET (FOR DETOX USE ONLY) PO ONE (10:14)
[2024-11-10 09:25] VITALS: BP 137/83; PULSE 90; RESP 18; TEMP 97.7
[2024-11-10 11:51] LABS: POTASSIUM 4.3 mmol/L (3.5-5.1)
[2024-11-10 12:36] LABS: CALCIUM 9.5 mg/dL (8.5-10.1)
[2024-11-10 12:37] LABS: BLOOD UREA NITROGEN 31.3 mg/dL (7-18)
== END 2024-11-10 09:21 | disposition home or self-care (01) | DRG 773 ==
LOC: YASAS 13:05 → Y3N 15:14
PROVIDERS: ADMIT Allergy & Immunology; ATTEND Allergy & Immunology
PROC: HZ2ZZZZ Detoxification Services for Substance Abuse Treatment (ICD-10-PCS; principal; 2024-11-04)
DX: F11.23 Opioid dependence with withdrawal (principal); F10.230 Alcohol dependence with withdrawal, uncomplicated; F14.20 Cocaine dependence, uncomplicated; F32.A Depression, unspecified; I10 Essential (primary) hypertension; N28.9 Disorder of kidney and ureter, unspecified; M17.12 Unilateral primary osteoarthritis, left knee; R79.89 Other specified abnormal findings of blood chemistry
CPT/HCPCS: 36415; 71045-TC-FY; 80048; 80053; 80305; 80307; 83036; 85027; 86780; 93005; 93010

== ENCOUNTER 2024-12-10 12:47 | Inpatient (IN) | payer OTHER ==
[2024-12-10 13:19] VITALS: BMI 21.1
[2024-12-10] MEDS ORDERED: LOPERAMIDE HCL 2 MG CAPSULE PO PRN (14:11)
[2024-12-10] MEDS ORDERED: BENZONATATE 200 MG CAPSULE PO PRN (14:11)
[2024-12-10] MEDS ORDERED: IBUPROFEN 400 MG TABLET (FP) PO PRN (14:11)
[2024-12-10] MEDS ORDERED: guaiFENesin 600 MG TABLET.ER (FP) PO PRN (14:11)
[2024-12-10] MEDS ORDERED: NALOXONE (NARCAN) HCL 4 MG/0.1 ML SPRAY NS PRN (14:11)
[2024-12-10] MEDS ORDERED: ACETAMINOPHEN 325 MG TABLET (FP) PO PRN (14:11)
[2024-12-10] MEDS ORDERED: MAG HYDROX/AL HYDROX/SIMETH 30 ML UNIT-DOSE CUP PO PRN (14:11)
[2024-12-10] MEDS ORDERED: DICYCLOMINE HCL 10 MG CAPSULE PO PRN (14:11)
[2024-12-10] MEDS ORDERED: BENZOCAINE/MENTHOL (CHLORASEPTIC ) LOZENGE MM PRN (14:11)
[2024-12-10] MEDS ORDERED: BISMUTH SUBSALICYLATE 262 MG/15 ML BTL PO PRN (14:11)
[2024-12-10] MEDS ORDERED: methaDONE HCL 10 MG TABLET (FOR DETOX USE ONLY) ONE (15:19)
[2024-12-10] MEDS ORDERED: HYDROCHLOROTHIAZIDE 12.5 MG CAPSULE (FP) ONE (15:20)
[2024-12-10] MEDS ORDERED: amLODIPine BESYLATE 5 MG TABLET (FP) ONE (15:20)
[2024-12-10] MEDS ORDERED: PRENATAL VITAMINS W/ FOLIC ACID TABLET (FP) PO ONE (15:20)
[2024-12-10] MEDS: PRENATAL VITAMINS W/ FOLIC ACID TABLET (FP) PO SCH (15:23)
[2024-12-10] MEDS: amLODIPine BESYLATE 5 MG TABLET (FP) PO ONE (15:23)
[2024-12-10] MEDS: methaDONE HCL 10 MG TABLET PO ONE (15:23)
[2024-12-10] MEDS: HYDROCHLOROTHIAZIDE 25 MG TABLET (FP) PO SCH (15:23)
[2024-12-10] MEDS: cloNIDine HCL 0.1 MG TABLET PO SCH (17:35)
[2024-12-10] MEDS: chlordiazePOXIDE HCL 25 MG CAPSULE PO PRN (17:35)
[2024-12-10] MEDS ORDERED: ASPIRIN COATED 81 MG TABLET.EC PO ONE (18:32)
[2024-12-10] MEDS ORDERED: methaDONE HCL 10 MG TABLET PO PRN (18:45)
[2024-12-10] MEDS: cloNIDine HCL 0.1 MG TABLET PO ONE (19:16)
[2024-12-10] MEDS: ASPIRIN COATED 81 MG TABLET.EC PO ONE (19:39)
[2024-12-10] MEDS: chlordiazePOXIDE HCL 25 MG CAPSULE PO SCH (22:10)
[2024-12-10] MEDS: MIRTAZAPINE 15 MG TABLET (FP) PO SCH (22:10)
[2024-12-10] MEDS: THIAMINE 100 MG TABLET PO SCH (22:10)
[2024-12-10] MEDS: MELATONIN 5 MG TABLETS PO SCH (22:11)
[2024-12-11] MEDS: IBUPROFEN 600 MG TABLET (FP) PO PRN (02:30)
[2024-12-11] MEDS: amLODIPine BESYLATE 10 MG TABLET (FP) PO SCH (09:44)
[2024-12-11] MEDS: MAGNESIUM HYDROX 2400MG/30ML ORAL SUSPENSION 30 ML CUP PO PRN (09:47)
[2024-12-11 11:05] LABS: HEMATOCRIT 39.5 % (40.1-51.0); HEMOGLOBIN 12.2 g/dL (13.7-17.5); MCHC 30.9 g/dl (32.3-36.5); MEAN CELL VOLUME 92.5 fl (79.0-92.2); MEAN PLT VOLUME 13.4 fl (9.4-12.4); PLATELET COUNT 187 x10^3/uL (163-337); RDW 13.5 % (12.2-16.4)
[2024-12-11 11:10] LABS: POTASSIUM 4.7 mmol/L (3.5-5.1)
[2024-12-11 11:32] LABS: ALBUMIN 3.8 g/dl (3.4-5.0); BLOOD UREA NITROGEN 28.4 mg/dL (7-18); CALCIUM 9.4 mg/dL (8.5-10.1)
[2024-12-11 11:33] LABS: CREATININE 2.2 mg/dL (0.55-1.3)
[2024-12-11 11:34] LABS: BILIRUBIN,TOTAL 0.4 mg/dL (0.2-1)
[2024-12-11 11:36] LABS: TOT PROT 7.9 g/dl (6.4-8.2)
[2024-12-11] MEDS: METHOCARBAMOL 500 MG TABLET PO PRN (11:45)
[2024-12-11] MEDS: POLYETHYLENE GLYCOL (HEALTHYLAX) 3350 17 GM PACKET PO PRN (22:11)
[2024-12-12] MEDS ORDERED: cloNIDine HCL 0.1 MG TABLET PO PRN
[2024-12-12] MEDS: chlordiazePOXIDE HCL 25 MG CAPSULE PO SCH (05:53)
[2024-12-12] MEDS ORDERED: methaDONE 40 MG, methaDONE 10 MG PO ONE (10:00)
[2024-12-12] MEDS ORDERED: methaDONE HCL 10 MG TABLET (FOR DETOX USE ONLY) PO SCH (10:00)
[2024-12-12 10:06] LABS: POTASSIUM 4.4 mmol/L (3.5-5.1)
[2024-12-12 10:12] LABS: CALCIUM 9.3 mg/dL (8.5-10.1)
[2024-12-12 10:13] LABS: BLOOD UREA NITROGEN 35.3 mg/dL (7-18)
[2024-12-12 10:16] LABS: CREATININE 2.1 mg/dL (0.55-1.3)
[2024-12-13] MEDS ORDERED: chlordiazePOXIDE HCL 10 MG CAPSULE PO PRN
[2024-12-13] MEDS: chlordiazePOXIDE HCL 10 MG CAPSULE PO SCH (05:57)
[2024-12-13] MEDS: hydrOXYzine PAMOATE 25 MG CAPSULE (FP) PO PRN (15:07)
[2024-12-14] MEDS: chlordiazePOXIDE HCL 10 MG CAPSULE PO SCH (06:00)
[2024-12-14 06:45] VITALS: RESP 16
[2024-12-14] MEDS ORDERED: methaDONE 40 MG, methaDONE 20 MG PO ONE (10:00)
[2024-12-14] MEDS: ONDANSETRON *ODT* 4 MG TABLET SL PRN (14:44)
[2024-12-15] MEDS: chlordiazePOXIDE HCL 10 MG CAPSULE PO ONE (05:57)
[2024-12-15 08:39] VITALS: BP 120/57; PULSE 84; TEMP 97.6
== END 2024-12-15 11:45 | disposition other institution (70) | DRG 773 ==
LOC: YASAS 12:47 → Y6N 15:34
PROVIDERS: ADMIT Allergy & Immunology; ATTEND Allergy & Immunology
PROC: HZ2ZZZZ Detoxification Services for Substance Abuse Treatment (ICD-10-PCS; principal; 2024-12-10)
DX: F11.23 Opioid dependence with withdrawal (principal); F10.230 Alcohol dependence with withdrawal, uncomplicated; F14.20 Cocaine dependence, uncomplicated; F15.20 Other stimulant dependence, uncomplicated; F19.282 Other psychoactive substance dependence with psychoactive substance-induced sleep disorder; F43.10 Post-traumatic stress disorder, unspecified; F32.A Depression, unspecified; I10 Essential (primary) hypertension; M17.0 Bilateral primary osteoarthritis of knee; M54.50 Low back pain, unspecified; G89.29 Other chronic pain
CPT/HCPCS: 36415; 80048; 80053; 80305; 80307; 85027; 86780; 87811; 93005; 93010; Q0162

== ENCOUNTER 2024-12-15 11:57 | Inpatient (IN) | payer OTHER ==
[2024-12-15] MEDS ORDERED: guaiFENesin 600 MG TABLET.ER (FP) PO PRN (14:32)
[2024-12-15] MEDS ORDERED: NALOXONE (NARCAN) HCL 4 MG/0.1 ML SPRAY NS PRN (14:32)
[2024-12-15] MEDS ORDERED: BENZOCAINE/MENTHOL (CHLORASEPTIC ) LOZENGE MM PRN (14:32)
[2024-12-15] MEDS ORDERED: POLYETHYLENE GLYCOL (HEALTHYLAX) 3350 17 GM PACKET PO PRN (14:32)
[2024-12-15] MEDS ORDERED: BENZONATATE 200 MG CAPSULE PO PRN (14:32)
[2024-12-15] MEDS ORDERED: NALOXONE HCL 0.4 MG/ML VIAL IVPUSH PRN (14:32)
[2024-12-15] MEDS: MELATONIN 5 MG TABLETS PO SCH (21:22)
[2024-12-15] MEDS: MIRTAZAPINE 15 MG TABLET (FP) PO SCH (21:22)
[2024-12-15] MEDS: THIAMINE 100 MG TABLET PO SCH (21:22)
[2024-12-16] MEDS: amLODIPine BESYLATE 10 MG TABLET (FP) PO SCH (11:04)
[2024-12-16] MEDS: HYDROCHLOROTHIAZIDE 25 MG TABLET (FP) PO SCH (11:04)
[2024-12-16] MEDS: PRENATAL VITAMINS W/ FOLIC ACID TABLET (FP) PO SCH (11:04)
[2024-12-16] MEDS ORDERED: methaDONE HCL 40 MG DISPERSABLE TABLET PO SCH (11:17)
[2024-12-16] MEDS: methaDONE HCL 40 MG DISPERSABLE TABLET PO SCH (11:45)
[2024-12-16] MEDS: ACETAMINOPHEN 325 MG TABLET (FP) PO PRN (18:37)
[2024-12-16] MEDS: hydrOXYzine PAMOATE 25 MG CAPSULE (FP) PO PRN (18:37)
[2024-12-16] MEDS: METHOCARBAMOL 500 MG TABLET PO PRN (21:03)
[2024-12-18] MEDS: LOPERAMIDE HCL 2 MG CAPSULE PO PRN (10:52)
[2024-12-21] MEDS ORDERED: METHOCARBAMOL 500 MG TABLET PO PRN (13:06)
[2024-12-22] MEDS: ACAMPROSATE CALCIUM 333 MG TABLET.DR PO SCH (21:05)
[2024-12-22] MEDS ORDERED: ACAMPROSATE CALCIUM 333 MG TABLET.DR PO SCH (22:00)
[2024-12-23 05:16] VITALS: TEMP 97.5
[2024-12-23 11:33] LABS: POTASSIUM 4.5 mmol/L (3.5-5.1)
[2024-12-23 11:46] LABS: BLOOD UREA NITROGEN 38.1 mg/dL (7-18); CALCIUM 9.8 mg/dL (8.5-10.1)
[2024-12-23 11:50] LABS: CREATININE 2.3 mg/dL (0.55-1.3)
[2024-12-25 06:07] VITALS: RESP 18
[2024-12-25 09:10] VITALS: BP 142/74; PULSE 87
== END 2024-12-25 09:45 | disposition home or self-care (01) | DRG 772 ==
LOC: YASAS 11:57 → Y3W 11:58
PROVIDERS: ADMIT Psychiatry & Neurology Pain Medicine; ATTEND Psychiatry & Neurology Pain Medicine
PROC: HZ42ZZZ Group Counseling for Substance Abuse Treatment, Cognitive-Behavioral (ICD-10-PCS; principal; 2024-12-15)
DX: F11.20 Opioid dependence, uncomplicated (principal); F10.20 Alcohol dependence, uncomplicated; F14.20 Cocaine dependence, uncomplicated; F19.282 Other psychoactive substance dependence with psychoactive substance-induced sleep disorder; F43.10 Post-traumatic stress disorder, unspecified; F32.A Depression, unspecified; I12.9 Hypertensive chronic kidney disease with stage 1 through stage 4 chronic kidney disease, or unspecified chronic kidney disease; N18.9 Chronic kidney disease, unspecified; M17.0 Bilateral primary osteoarthritis of knee
CPT/HCPCS: 36415; 80048